=== PATIENT | female | born 2000 | race Caucasian/White ===

== ENCOUNTER 2020-04-17 00:58 | Emergency (ER) | payer OTHER ==
[2020-04-17] MEDS ORDERED: Nitrostat 0.4 MG (ED) SL ONE (01:25)
[2020-04-17] MEDS ORDERED: TYLENOL 325 MG PO ONE (01:28)
[2020-04-17] MEDS ORDERED: ZOFRAN ODT 4 MG PO ONE (01:29)
[2020-04-17] MEDS ORDERED: ZOFRAN ODT 4 MG ONE (01:33)
[2020-04-17] MEDS ORDERED: TYLENOL 325 MG ONE (01:33)
--- NOTE | 2020-04-17 01:35 | ERPHSYRPT ---
- History of Present Illness Time Seen by Provider: 04/17/20 01:17 Source: patient Exam Limitations: no limitations Physician History: Pt states she started with a global headache 7 days ago, was admitted to [facility] in [place] 3 days ago because of the headache, HTN and 30 second generalized seizure(pt's first) and discharged yesterday. Pt states she had a normal CT-head during her stay. Pt states her global headache returned 3 hours ago along with nausea and dull intermittent chest pain lasting up to 20 minutes. Pt denies shortness of air, fever, abdominal pain. LBM was 4 days ago & without blood. Allergies/Adverse Reactions: No Known Drug Allergies Allergy (Unverified 04/17/20 01:06) - Review of Systems Constitutional: No Fever Respiratory: No Dyspnea Cardiac: Chest Pain Abdominal/Gastrointestinal: Nausea, No Abdominal Pain, No Vomiting, No Diarrhea Neurological: Headache All Other Systems: Reviewed and Negative - Female History Hx Now: (unknown) - Nursing Vital Signs Nursing Vital Signs: Initial Vital Signs Temperature 97.9 F 04/17/20 01:08 Pulse Rate 53 L 04/17/20 01:08 Respiratory Rate 14 04/17/20 01:08 Blood Pressure 157/86 04/17/20 01:08 O2 Sat by Pulse Oximetry 97 04/17/20 01:08 Pain Scale Pain Intensity 6 - Physical Exam General Appearance: alert Eye Exam: PERRL/EOMI Ears, Nose, Throat Exam: other (cerumen occlusion of both ears.) Neck Exam: normal inspection Respiratory Exam: lungs clear Cardiovascular Exam: normal heart sounds Gastrointestinal/Abdominal Exam: soft, normal bowel sounds Back Exam: normal range of motion Extremity Exam: normal range of motion Mental Status Exam: alert, 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 Exam: normal hearing, normal speech, PERRL, tongue midline, No facial droop Motor/Sensory Exam: no motor deficit, no sensory deficit Skin Exam: warm, dry SpO2 Interpretation: normal SpO2: 97 O2 Delivery: Room Air - Course Nursing assessment & vital signs reviewed: Yes EKG Interpreted by Me: RATE (60), Sinus Rhythm, NORMAL AXIS, NORMAL INTERVALS Ordered Tests: Active Orders 24 hr Category Date Time Status EKG-ER Only STAT Care 04/17/20 01:25 Active CHEST 2 VIEWS (PA AND LAT) Stat Exams 04/17/20 01:26 Taken BLOOD CULTURE Stat Lab 04/17/20 03:00 Ordered CBC W DIFF Stat Lab 04/17/20 01:48 Completed CMP Stat Lab 04/17/20 01:48 Completed CULTURE,URINE Stat Lab 04/17/20 02:00 Received MAGNESIUM Stat Lab 04/17/20 01:48 Completed TROPONIN Q3H Lab 04/17/20 01:48 Completed TROPONIN Q3H Lab 04/17/20 04:30 Ordered TROPONIN Q3H Lab 04/17/20 07:30 Ordered TROPONIN Q3H Lab 04/17/20 10:30 Ordered TROPONIN Q3H Lab 04/17/20 13:30 Ordered UA W/RFX UR CULTURE Stat Lab 04/17/20 02:00 Completed Urine Triage Profile Stat Lab 04/17/20 02:00 Completed Medication Summary Discontinued Medications Generic Name Dose Route Start Last Admin Trade Name Freq PRN Reason Stop Dose Admin Acetaminophen 650 mg 04/17/20 01:28 04/17/20 01:34 Tylenol 325 Mg PO 04/17/20 01:29 650 mg STAT ONE Administration Acetaminophen Confirm 04/17/20 01:33 Tylenol 325 Mg Administered 04/17/20 01:34 Dose 650 mg .ROUTE .STK-MED ONE Ceftriaxone Sodium 1,000 mg 04/17/20 03:00 Rocephin 1000 Mg Inj IM 04/17/20 03:01 STAT ONE Ceftriaxone Sodium Confirm 04/17/20 03:03 Rocephin 1000 Mg Inj Administered 04/17/20 03:04 Dose 1,000 mg .ROUTE .STK-MED ONE Lidocaine HCl Confirm 04/17/20 03:04 Xylocaine 1% Hcl 20 Ml Mdv Administered 04/17/20 03:05 Dose 1 ml .ROUTE .STK-MED ONE Nitroglycerin 0.4 mg 04/17/20 01:25 04/17/20 01:34 Nitrostat 0.4 Mg (Ed) SL 04/17/20 01:26 0.4 mg STAT ONE Administration Ondansetron HCl 4 mg 04/17/20 01:29 04/17/20 01:34 Zofran Odt 4 Mg PO 04/17/20 01:30 4 mg STAT ONE Administration Ondansetron HCl Confirm 04/17/20 01:33 Zofran Odt 4 Mg Administered 04/17/20 01:34 Dose 4 mg .ROUTE .STK-MED ONE Promethazine HCl 25 mg 04/17/20 03:02 Phenergan 25 Mg Inj IM 04/17/20 03:03 STAT ONE Promethazine HCl Confirm 04/17/20 03:03 Phenergan 25 Mg Inj Administered 04/17/20 03:04 Dose 25 mg .ROUTE .STK-MED ONE Lab/Rad Data: Laboratory Result Diagrams 04/17/20 01:48 04/17/20 01:48 Laboratory Results 04/17/20 04/17/20 04/17/20 Range/Units 02:00 02:00 01:48 WBC (4.0-10.5) K/mm3 RBC (4.1-5.4) M/mm3 Hgb (12.0-16.0) gm/dl Hct (35-47) % MCV (78-100) fl MCH (26-32) pg MCHC (32-36) g/dl RDW (11.5-14.0) % Plt Count (150-450) K/mm3 MPV (7.5-11.0) fl Gran % (36.0-66.0) % Eos # (Auto) (0-0.5) Absolute Lymphs (auto) (1.0-4.6) Absolute Monos (auto) (0.0-1.3) Lymphocytes % (24.0-44.0) % Monocytes % (0.0-12.0) % Eosinophils % (0.00-5.0) % Basophils % (0.0-0.4) % Absolute Granulocytes (1.4-6.9) Basophils # (0-0.4) Sodium (137-145) mmol/L Potassium (3.5-5.1) mmol/L Chloride (98-107) mmol/L Carbon Dioxide (22-30) mmol/L Anion Gap (5-15) MEQ/L BUN (7-17) mg/dL Creatinine (0.52-1.04) mg/dL Estimated GFR ML/MIN Glucose (74-106) mg/dL Calcium (8.4-10.2) mg/dL Magnesium (1.6-2.3) mg/dL Total Bilirubin (0.2-1.3) mg/dL AST (14-36) U/L ALT (0-35) U/L Alkaline Phosphatase (38-126) U/L Troponin I < 0.012 (0.000-0.034) ng/mL Serum Total Protein (6.3-8.2) g/dL Albumin (3.5-5.0) g/dL Urine Color YELLOW (YELLOW) Urine Appearance SLIGHTLY CLOUDY (CLEAR) Urine pH 6.0 (5-6) Ur Specific [place] 1.015 (1.005-1.025) Urine Protein NEGATIVE (Negative) Urine Ketones NEGATIVE (NEGATIVE) Urine Blood LARGE (0-5) Lalit/ul Urine Nitrite NEGATIVE (NEGATIVE) Urine Bilirubin NEGATIVE (NEGATIVE) Urine Urobilinogen 4 (0-1) mg/dL Ur Leukocyte Esterase MODERATE (NEGATIVE) Urine WBC (Auto) 16-25 (0-5) /HPF Urine RBC (Auto) >101 (0-2) /HPF U Epithel Cells (Auto) NONE (FEW) /HPF Urine Bacteria (Auto) RARE (NEGATIVE) /HPF Amorphous Crystals FEW (NEGATIVE) /HPF Urine Mucus (Auto) SLIGHT (NEGATIVE) /HPF Urine Culture Reflexed YES (NO) Urine Glucose NEGATIVE (NEGATIVE) mg/dL Urine Opiates Level POSITIVE (NEGATIVE) Ur Methadone NEGATIVE (NEGATIVE) Urine Barbiturates NEGATIVE (NEGATIVE) Ur Phencyclidine (PCP) NEGATIVE (NEGATIVE) Urine Amphetamine NEGATIVE (NEGATIVE) U Benzodiazepine Level NEGATIVE (NEGATIVE) Urine Cocaine NEGATIVE (NEGATIVE) Urine Marijuana (THC) POSITIVE (NEGATIVE) 04/17/20 04/17/20 Range/Units 01:48 01:48 WBC 6.0 (4.0-10.5) K/mm3 RBC 4.14 (4.1-5.4) M/mm3 Hgb 11.6 L (12.0-16.0) gm/dl Hct 37.5 (35-47) % MCV 90.6 (78-100) fl MCH 28.0 (26-32) pg MCHC 30.9 L (32-36) g/dl RDW 14.0 (11.5-14.0) % Plt Count 242 (150-450) K/mm3 MPV 9.0 (7.5-11.0) fl Gran % 54.0 (36.0-66.0) % Eos # (Auto) 0.19 (0-0.5) Absolute Lymphs (auto) 2.12 (1.0-4.6) Absolute Monos (auto) 0.44 (0.0-1.3) Lymphocytes % 35.1 (24.0-44.0) % Monocytes % 7.3 (0.0-12.0) % Eosinophils % 3.1 (0.00-5.0) % Basophils % 0.5 (0.0-0.4) % Absolute Granulocytes 3.26 (1.4-6.9) Basophils # 0.03 (0-0.4) Sodium 139 (137-145) mmol/L Potassium 3.9 (3.5-5.1) mmol/L Chloride 107 (98-107) mmol/L Carbon Dioxide 27 (22-30) mmol/L Anion Gap 8.3 (5-15) MEQ/L BUN 12 (7-17) mg/dL Creatinine 0.66 (0.52-1.04) mg/dL Estimated GFR > 60.0 ML/MIN Glucose 92 (74-106) mg/dL Calcium 8.9 (8.4-10.2) mg/dL Magnesium 2.2 (1.6-2.3) mg/dL Total Bilirubin 0.30 (0.2-1.3) mg/dL AST 18 (14-36) U/L ALT 20 (0-35) U/L Alkaline Phosphatase 106 (38-126) U/L Troponin I (0.000-0.034) ng/mL Serum Total Protein 6.5 (6.3-8.2) g/dL Albumin 3.6 (3.5-5.0) g/dL Urine Color (YELLOW) Urine Appearance (CLEAR) Urine pH (5-6) Ur Specific [place] (1.005-1.025) Urine Protein (Negative) Urine Ketones (NEGATIVE) Urine Blood (0-5) Lalit/ul Urine Nitrite (NEGATIVE) Urine Bilirubin (NEGATIVE) Urine Urobilinogen (0-1) mg/dL Ur Leukocyte Esterase (NEGATIVE) Urine WBC (Auto) (0-5) /HPF Urine RBC (Auto) (0-2) /HPF U Epithel Cells (Auto) (FEW) /HPF Urine Bacteria (Auto) (NEGATIVE) /HPF Amorphous Crystals (NEGATIVE) /HPF Urine Mucus (Auto) (NEGATIVE) /HPF Urine Culture Reflexed (NO) Urine Glucose (NEGATIVE) mg/dL Urine Opiates Level (NEGATIVE) Ur Methadone (NEGATIVE) Urine Barbiturates (NEGATIVE) Ur Phencyclidine (PCP) (NEGATIVE) Urine Amphetamine (NEGATIVE) U Benzodiazepine Level (NEGATIVE) Urine Cocaine (NEGATIVE) Urine Marijuana (THC) (NEGATIVE) - Progress Progress: improved Progress Note: 04/17/20 02:57 CT-head from 04/14/20 impression: no acute findings. Within normal limits. Counseled pt/family regarding: lab results, diagnosis - Departure Departure Disposition: Home Clinical Impression: Headache, HTN (hypertension), UTI (urinary tract infection), Chest pain Condition: Stable Critical Care Time: No Referrals: DOCTOR,NO FAMILY [Primary Care Provider] - Instructions: Headache, Adult (DC), Urinary Tract Infection, Adult (DC) Additional Instructions: Follow up with private doctor tomorrow. Prescriptions: Ondansetron ODT 4 MG [Zofran Odt 4 mg] 4 mg PO Q6H PRN PRN #10 tab.rapdis PRN Reason: Nausea/Vomiting Nitrofurantoin Monohyd/M-Cryst [Macrobid 100 mg Capsule] 100 mg PO BID #20 capsule
[2020-04-17 01:52] LABS: Absolute Neutrophil Ct (ANC) 3.26 (1.4-6.9); BASOPHIL % 0.5 % (0.0-0.4); Basophil (Absolute #) 0.03 (0-0.4); Eosinophil % 3.1 % (0.00-5.0); Eosinophil (Absolute #) 0.19 (0-0.5); Hematocrit 37.5 % (35-47); Hemoglobin 11.6 gm/dl (12.0-16.0); Lymphocyte (Absolute #) 2.12 (1.0-4.6); Lymphocytes % 35.1 % (24.0-44.0); Mean Cell Volume 90.6 fl (78-100); Mean Corpuscular Hgb Concent. 30.9 g/dl (32-36); Monocyte (Absolute #) 0.44 (0.0-1.3); Monocytes % 7.3 % (0.0-12.0); Platelet Count 242 K/mm3 (150-450); Red Blood Count 4.14 M/mm3 (4.1-5.4)
[2020-04-17 02:06] LABS: ALBUMIN 3.6 g/dL (3.5-5.0); ALKALINE PHOSPHATASE 106 U/L (38-126); ANION GAP 8.3 MEQ/L (5-15); BLOOD UREA NITROGEN 12 mg/dL (7-17); CHLORIDE 107 mmol/L (98-107); Calcium 8.9 mg/dL (8.4-10.2); Carbon Dioxide 27 mmol/L (22-30); Creatinine 1 0.66 mg/dL (0.52-1.04); EST GLOMERULAR FILTRATION RATE > 60.0 ML/MIN; Glucose 92 mg/dL (74-106); MAGNESIUM 2.2 mg/dL (1.6-2.3); Potassium 3.9 mmol/L (3.5-5.1); SGOT/AST 18 U/L (14-36); SGPT/ALT 20 U/L (0-35); SODIUM 139 mmol/L (137-145); Total Protein 6.5 g/dL (6.3-8.2)
[2020-04-17 02:12] LABS: Amourphous Crystal FEW /HPF (NEGATIVE); Appearance SLIGHTLY CLOUDY (CLEAR); Bacteria RARE /HPF (NEGATIVE); Bilirubin NEGATIVE (NEGATIVE); Blood LARGE Ery/ul (0-5); Glucose NEGATIVE (NEGATIVE); Ketones NEGATIVE (NEGATIVE); Leukocyte Esterase MODERATE (NEGATIVE); Mucus SLIGHT /HPF (NEGATIVE); Nitrite NEGATIVE (NEGATIVE); Protein,Urine Dip NEGATIVE (Negative); RBC >101 /HPF (0-2); Specific Gravity 1.015 (1.005-1.025); Urobilinogen 4 mg/dL (0-1)
[2020-04-17 02:19] LABS: Amphetamine,Urine NEGATIVE (NEGATIVE); Barbiturate,Urine NEGATIVE (NEGATIVE); Benzodiazepine,Urine NEGATIVE (NEGATIVE); Cocaine,Urine NEGATIVE (NEGATIVE); Methadone,Urine NEGATIVE (NEGATIVE); Opiate,Urine POSITIVE (NEGATIVE); PCP,Urine NEGATIVE (NEGATIVE); THC,Urine POSITIVE (NEGATIVE)
[2020-04-17] MEDS ORDERED: Rocephin 1000 MG INJ IM ONE (03:00)
[2020-04-17] MEDS ORDERED: Phenergan 25 MG INJ IM ONE (03:02)
[2020-04-17] MEDS ORDERED: Rocephin 1000 MG INJ ONE (03:03)
[2020-04-17] MEDS ORDERED: Phenergan 25 MG INJ ONE (03:03)
[2020-04-17] MEDS ORDERED: XYLOCAINE 1% HCL 20 ML MDV ONE (03:04)
[2020-04-17] MEDS ORDERED: TORAdol 30 mg Injection ONE (03:05)
[2020-04-17] MEDS ORDERED: TORAdol 30 mg Injection IM ONE (03:06)
[2020-04-17 03:16] VITALS: O2SAT 97
[2020-04-17 03:37] VITALS: BP 178/93; PULSE 50
--- NOTE | 2020-04-17 09:20 | XRAY ---
Indication: Pain. Comparison: None PA/lateral chest demonstrates normal heart or lungs. Bony thorax intact.
== END 2020-04-17 03:37 | disposition home or self-care (01) ==
LOC: ED 00:58
DX: R51.9 Headache, unspecified (principal); I10 Essential (primary) hypertension; R07.9 Chest pain, unspecified
CPT/HCPCS: 36415; 71046; 80053; 80307; 81001; 83735; 84484; 85025; 87040; 87086; 93005; 96372; 99284; J0696; J1885; J2550; Q0162; A9270-GY

== ENCOUNTER 2022-04-21 18:04 | Emergency (ER) | payer OTHER ==
--- NOTE | 2022-04-21 18:56 | ERPHSYRPT ---
- History of Present Illness Time Seen by Provider: 04/21/22 18:51 Historian: patient Exam Limitations: no limitations Patient Subjective Stated Complaint: Patient states that she is having chest pain radiating in her shoulders and her arms are numb. States she is having t rouble breathing. She said it started 04/03 and started having the pain with it 04/20. Triage Nursing Assessment: Patient to ED with chest pain. Patient is tearful and anxious at this time. VS WNL. Patient is rating pain at a 5. States it feels like a constant cramping. 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 No neuro deficits, just radicular pain. reflexes normal and strength normal and symmetrical. Heart score is less than 3 - no family Hx, No hptn other that eclampsia resolved- . EKG appears normal and cp only mildly suspicious. Percs out with no Hx DVT or PE, No hormonal therapy. No recent surgeis and no hx cancer. . Timing/Duration: today, intermittent Activities at Onset: activity Quality: sharpness Location: central, shoulder Chest Pain Radiation: arm Severity of Pain-Max: mild Severity of Pain-Current: mild Modifying Factors: Improves With: movement Associated Symptoms: denies symptoms Prior Chest Pain/Cardiac Workup: non-cardiac, recently seen/treated Nitro Today/Relief: no nitro taken today Aspirin Treatment Today: 81 mg x 4, provided by ED Allergies/Adverse Reactions: No Known Drug Allergies Allergy (Verified 04/21/22 18:33) Hx Tetanus, Diphtheria Vaccination/Date Given: Yes Hx Influenza Vaccination/Date Given: No Hx Pneumococcal Vaccination/Date Given: No Immunizations Up to Date: Yes Travel Risk - International Travel Have you traveled outside of the country in past 3 weeks: No - Coronavirus Screening Are you exhibiting any of the following symptoms?: No Close contact with a COVID-19 positive Pt in past 14-21 Days: No - Vaccine Status Have you recieved a Covid-19 vaccination: No - Review of Systems Constitutional: No Fever, No Chills Eyes: No Symptoms Ears, Nose, & Throat: No Symptoms Respiratory: No Cough, No Dyspnea Cardiac: Chest Pain, No Edema, No Syncope Abdominal/Gastrointestinal: No Abdominal Pain, No Nausea, No Vomiting, No Diarrhea Genitourinary Symptoms: No Dysuria Musculoskeletal: No Back Pain, No Neck Pain Skin: No Rash Neurological: No Dizziness, No Focal Weakness, No Sensory Changes Psychological: No Symptoms Endocrine: No Symptoms All Other Systems: Reviewed and Negative - Past Medical History Pertinent Past Medical History: No - Past Surgical History Past Surgical History: No Other Surgical History: wisdom teeth - Social History Smoking Status: Current every day smoker Exposure to second hand smoke: Yes Drug Use: marijuana Patient Lives Alone: No - Female History Hx Last Menstrual Period: 03/29/22 Hx Now: No - Nursing Vital Signs Nursing Vital Signs: Initial Vital Signs Temperature 99 F 04/21/22 18:19 Pulse Rate 81 04/21/22 18:19 Respiratory Rate 21 04/21/22 18:19 Blood Pressure 111/75 04/21/22 18:19 O2 Sat by Pulse Oximetry 99 04/21/22 18:19 Pain Scale Pain Intensity 5 - Physical Exam General Appearance: no apparent distress, alert Eye Exam: PERRL/EOMI, eyes nml inspection Ears, Nose, Throat Exam: normal ENT inspection, moist mucous membranes Neck Exam: normal inspection, non-tender, supple, full range of motion Respiratory Exam: normal breath sounds, lungs clear, No respiratory distress Cardiovascular Exam: regular rate/rhythm, other (mid systolic click) Gastrointestinal/Abdomen Exam: soft, No tenderness, No mass Pelvic Exam: deferred Rectal Exam: deferred Back Exam: normal inspection, No CVA tenderness, No vertebral tenderness Extremity Exam: normal inspection, normal range of motion Neurologic Exam: alert, oriented x 3, cooperative, normal mood/affect, sensation nml, No motor deficits Skin Exam: normal color, warm, dry SpO2 Interpretation: normal SpO2: 99 O2 Delivery: Room Air - Course Nursing assessment & vital signs reviewed: Yes EKG Interpreted by Me: Sinus Rhythm, NORMAL AXIS, NORMAL INTERVALS, NORMAL QRS, Non-specific ST Changes Ordered Tests: Active Orders 24 hr Category Date Time Status EKG-ER Only STAT Care 04/21/22 19:02 Active HCG QUALITATIVE,SERUM Stat Lab 04/21/22 19:07 Completed TROPONIN Q4H Lab 04/21/22 19:07 Completed TROPONIN Q4H Lab 04/21/22 23:15 Ordered TROPONIN Q4H Lab 04/22/22 03:15 Ordered Lab/Rad Data: Laboratory Results 04/21/22 04/21/22 Range/Units 19:07 19:07 Troponin I < 0.012 (0.000-0.034) ng/mL Serum , Qual NEGATIVE (Negative) - Progress Progress: improved, re-examined Air Movement: good Progress Note: 04/21/22 20:53 no CP except with arm motions . 04/21/22 20:53 discussed risks with pt and that although she is low risk, additional cardiac pathology could still be evolving and she is comfortable with DC and outpt followup without further workup in [facility] and has the capacity to make this choice. Blood Culture(s) Obtained: No Antibiotics given: No Counseled pt/family regarding: lab results, diagnosis, need for follow-up - Departure Departure Disposition: Home Clinical Impression: Chest pain, Mid-systolic click Condition: Good Critical Care Time: No Referrals: DOCTOR,NO FAMILY [Primary Care Provider] - Follow up/PCP as directed Instructions: Mitral Valve Prolapse, Degenerative Disc Disease, Chest Pain (DC) Additional Instructions: although your heart score is low risk , there could still be cardiac concerns especially with your mid systolic click which can be mitral valve prolapse best seen by echocardiogram . return meantime if further symptoms or concerns, and also see your dr to consider MRI for cervical disc disease.
[2022-04-21 20:31] VITALS: BP 121/73; PULSE 84
[2022-04-21 20:55] VITALS: O2SAT 99
== END 2022-04-21 21:08 | disposition home or self-care (01) ==
LOC: ED 18:04
DX: R07.9 Chest pain, unspecified (principal); R01.2 Other cardiac sounds; Z72.0 Tobacco use; Z28.310 Unvaccinated for COVID-19
CPT/HCPCS: 36415; 84484; 84703; 93005; 99283

== ENCOUNTER 2022-11-03 13:03 | Emergency (ER) | payer OTHER ==
[2022-11-03 13:49] LABS: Absolute Neutrophil Ct (ANC) 3.12 x10^3/uL (1.4-6.9); BASOPHIL % 0.2 % (0.0-0.4); Basophil (Absolute #) 0.01 x10^3/uL (0-0.4); Eosinophil % 0.4 % (0.00-5.0); Eosinophil (Absolute #) 0.02 x10^3/uL (0-0.5); Hematocrit 42.1 % (35-47); IMMATURE GRAN # 0.01 x10^3u/L (0.00-0.03); IMMATURE GRAN % 0.2 % (0.00-0.4); Lymphocyte (Absolute #) 1.36 x10^3/uL (1.0-4.6); Lymphocytes % 29.1 % (24.0-44.0); Mean Cell Volume 92.5 fL (78-100); Mean Corpuscular Hemoglobin 30.8 pg (26-32); Mean Corpuscular Hgb Concent. 33.3 g/dL (32-36); Mean Platelet Volume 10.3 fL (7.5-11.0); Monocyte (Absolute #) 0.15 x10^3/uL (0.0-1.3); Monocytes % 3.2 % (0.0-12.0); Neutrophil % 66.9 % (36.0-66.0); Platelet Count 194 x10^3/uL (150-450); Red Blood Count 4.55 x10^6/uL (4.1-5.4); Red Cell Distribution Width 12.3 % (11.5-14.0); White Blood Count 4.7 x10^3/uL (4.0-10.5)
[2022-11-03 14:05] LABS: ADD URINE CULTURE? YES (NO); Appearance Clear (Clear); Bacteria None Seen /HPF (None Seen); Bilirubin Negative (Negative); Blood Large (Negative); Epithelial Cells Few /HPF (None Seen); Glucose, Urine Negative (Negative); Hyaline Casts NONE SEEN /LPF (0-2); Ketones Negative (Negative); Leukocyte Esterase Small (Negative); Nitrite Negative (Negative); Ph 7.5 (4.6-8.0); Protein,Urine Dip Negative (Negative); Specific Gravity 1.015 (1.005-1.030)
[2022-11-03 14:18] LABS: ALBUMIN 4.5 g/dL (3.5-5.0); ALKALINE PHOSPHATASE 54 U/L (38-126); ANION GAP 13.9 MEQ/L (5-15); BLOOD UREA NITROGEN 6 mg/dL (7-17); CHLORIDE 103 mmol/L (98-107); Calcium 9.2 mg/dL (8.4-10.2); Carbon Dioxide 26 mmol/L (22-30); Creatinine 1 0.43 mg/dL (0.52-1.04); EST GLOMERULAR FILTRATION RATE > 60.0 ML/MIN; Glucose 79 mg/dL (74-106); Potassium 3.4 mmol/L (3.5-5.1); SGOT/AST 23 U/L (14-36); SGPT/ALT 17 U/L (0-35); SODIUM 139 mmol/L (137-145); Total Protein 8.2 g/dL (6.3-8.2)
--- NOTE | 2022-11-03 14:38 | ERPHSYRPT ---
- History of Present Illness Time Seen by Provider: 11/03/22 13:21 Source: patient Exam Limitations: no limitations Patient Subjective Stated Complaint: -14 weeks vaginal bleeding Triage Nursing Assessment: Patient ambulated back to ED and transferred self to bed. Patient A+O X 3. Patient's skin pink, warm and dry. Patient states she is 14 weeks and started having lower back pain 5/10. Patient states she started having vaginal bleeding today bright red blood. Physician History: Patient is here with some vaginal bleeding. Patient states that she is 14 weeks . She follows with MFM at [facility] in [place]. Patient is high risk MFM secondary to preeclampsia in her first . Patient states that she is approximately 14 weeks . No falls or trauma. Patient states that she has no fever, chills. No UTI-like symptoms. States that she had right vaginal spotting. Started today. Nothing has made it better or worse. Bleeding has resolved. Allergies/Adverse Reactions: No Known Drug Allergies Allergy (Verified 11/03/22 13:12) Home Medications: No Reportable Medications [No Reported Medications] 11/03/22 [History] Hx Tetanus, Diphtheria Vaccination/Date Given: Yes Hx Influenza Vaccination/Date Given: No Hx Pneumococcal Vaccination/Date Given: No Immunizations Up to Date: Yes Travel Risk - International Travel Have you traveled outside of the country in past 3 weeks: No - Coronavirus Screening Are you exhibiting any of the following symptoms?: No Close contact with a COVID-19 positive Pt in past 14-21 Days: No - Vaccine Status Have you recieved a Covid-19 vaccination: No - Review of Systems Constitutional: No Fever, No Chills Eyes: No Symptoms Ears, Nose, & Throat: No Symptoms Respiratory: No Cough, No Dyspnea Cardiac: No Chest Pain, No Edema, No Syncope Abdominal/Gastrointestinal: No Abdominal Pain, No Nausea, No Vomiting, No Diarrhea Genitourinary Symptoms: Vaginal Bleeding, No Dysuria Musculoskeletal: No Back Pain, No Neck Pain Skin: No Rash Neurological: No Dizziness, No Focal Weakness, No Sensory Changes Psychological: No Symptoms Endocrine: No Symptoms All Other Systems: Reviewed and Negative - Past Medical History Pertinent Past Medical History: No Other Medical History: preclampsia with first child - Past Surgical History Past Surgical History: No Other Surgical History: wisdom teeth - Social History Smoking Status: Former smoker Exposure to second hand smoke: Yes Drug Use: none Patient Lives Alone: No - Female History Hx Last Menstrual Period: 08/04/2022 Hx Now: Yes Gestational Age: 14 weeks - Nursing Vital Signs Nursing Vital Signs: Initial Vital Signs Temperature 97.3 F 11/03/22 13:14 Pulse Rate 94 H 11/03/22 13:14 Respiratory Rate 18 11/03/22 13:14 Blood Pressure 114/52 11/03/22 13:14 O2 Sat by Pulse Oximetry 99 11/03/22 13:14 Pain Scale Pain Intensity 5 - Physical Exam General Appearance: no apparent distress, alert Eye Exam: PERRL/EOMI, eyes nml inspection Ears, Nose, Throat Exam: normal ENT inspection, TMs normal, pharynx normal, moist mucous membranes Neck Exam: normal inspection, non-tender, supple, full range of motion Respiratory Exam: normal breath sounds, lungs clear, No respiratory distress Cardiovascular Exam: regular rate/rhythm, normal heart sounds, normal peripheral pulses Gastrointestinal/Abdomen Exam: soft, normal bowel sounds, No tenderness, No mass Back Exam: normal inspection, normal range of motion, No CVA tenderness, No vertebral tenderness Extremity Exam: normal inspection, normal range of motion, pelvis stable Neurologic Exam: alert, oriented x 3, cooperative, normal mood/affect, nml cerebellar function, nml station & gait, sensation nml, No motor deficits Skin Exam: normal color, warm, dry, No rash Lymphatic Exam: No adenopathy SpO2: 99 - Course Nursing assessment & vital signs reviewed: Yes Ordered Tests: Active Orders 24 hr Category Date Time Status IV Insertion STAT Care 11/03/22 13:26 Completed OB LIMITED [US] Stat Exams 11/03/22 13:58 Taken CBC W DIFF Stat Lab 11/03/22 13:45 Completed CMP Stat Lab 11/03/22 13:27 Completed CULTURE,URINE Stat Lab 11/03/22 13:27 Received HCG, Quantitative (Inhouse) Stat Lab 11/03/22 13:27 Completed UA W/RFX UR CULTURE Stat Lab 11/03/22 13:27 Completed Lab/Rad Data: Laboratory Result Diagrams 11/03/22 13:45 11/03/22 13:27 Laboratory Results 11/03/22 11/03/22 11/03/22 Range/Units 13:45 13:27 13:27 WBC 4.7 (4.0-10.5) x10^3/uL RBC 4.55 (4.1-5.4) x10^6/uL Hgb 14.0 (12.0-16.0) g/dL Hct 42.1 (35-47) % MCV 92.5 (78-100) fL MCH 30.8 (26-32) pg MCHC 33.3 (32-36) g/dL RDW 12.3 (11.5-14.0) % Plt Count 194 (150-450) x10^3/uL MPV 10.3 (7.5-11.0) fL Gran % 66.9 H (36.0-66.0) % Immature Gran % (Auto) 0.2 (0.00-0.4) % Nucleat RBC Rel Count 0.0 (0.00-0.1) % Eos # (Auto) 0.02 (0-0.5) x10^3/uL Immature Gran # (Auto) 0.01 (0.00-0.03) x10^3u/L Absolute Lymphs (auto) 1.36 (1.0-4.6) x10^3/uL Absolute Monos (auto) 0.15 (0.0-1.3) x10^3/uL Absolute Nucleated RBC 0.00 (0.00-0.01) x10^3u/L Lymphocytes % 29.1 (24.0-44.0) % Monocytes % 3.2 (0.0-12.0) % Eosinophils % 0.4 (0.00-5.0) % Basophils % 0.2 (0.0-0.4) % Absolute Granulocytes 3.12 (1.4-6.9) x10^3/uL Basophils # 0.01 (0-0.4) x10^3/uL Sodium 139 (137-145) mmol/L Potassium 3.4 L (3.5-5.1) mmol/L Chloride 103 (98-107) mmol/L Carbon Dioxide 26 (22-30) mmol/L Anion Gap 13.9 (5-15) MEQ/L BUN 6 L (7-17) mg/dL Creatinine 0.43 L (0.52-1.04) mg/dL Estimated GFR > 60.0 ML/MIN Glucose 79 (74-106) mg/dL Calcium 9.2 (8.4-10.2) mg/dL Total Bilirubin 0.40 (0.2-1.3) mg/dL AST 23 (14-36) U/L ALT 17 (0-35) U/L Alkaline Phosphatase 54 (38-126) U/L Serum Total Protein 8.2 (6.3-8.2) g/dL Albumin 4.5 (3.5-5.0) g/dL Beta HCG, Quant 21962 mIU/ml Urine Color Yellow (Yellow) Urine Appearance Clear (Clear) Urine pH 7.5 (4.6-8.0) Ur Specific [place] 1.015 (1.005-1.030) Urine Protein Negative (Negative) Urine Glucose (UA) Negative (Negative) mg/dL Urine Ketones Negative (Negative) Urine Blood Large A (Negative) Urine Nitrite Negative (Negative) Urine Bilirubin Negative (Negative) Urine Urobilinogen 1.0 A (0.2) mg/dL Ur Leukocyte Esterase Small A (Negative) U Hyaline Cast (Auto) NONE SEEN (0-2) /LPF Urine Microscopic RBC 11-20 A (0-5) /HPF Urine Microscopic WBC 11-20 A (0-5) /HPF Ur Epithelial Cells Few (None Seen) /HPF Urine Bacteria None Seen (None Seen) /HPF Urine Culture Reflexed YES (NO) - Progress Progress: improved Progress Note: 11/03/22 15:41 Patient here with vaginal bleeding in . Patient has a stable H&H. UA shows no signs of infection. We were able to obtain an ultrasound today. Angela ring report given to me by electrical design technician. Patient has a stable heart rate of 165. Baby appears stable. Possible small subchorionic hematoma. Otherwise stable. I did discuss that this is a one-time reading patient may go on to still have a miscarriage. Threatened miscarriage at this point time. Plan for discharge home. Return here sooner for new or changing symptoms Counseled pt/family regarding: lab results, diagnosis, need for follow-up, rad results Medical Desision Making - Diagnostic Testing Diagnostic test were ordered, analyzed, and reviewed by me: Yes Radiological Interpretation: Reviewed by me - Risk of complications Minimal Risk: Minimal risk of morbidity - Departure Departure Disposition: Home Clinical Impression: Vaginal bleeding during , Subchorionic hematoma in first trimester Condition: Stable Critical Care Time: No Referrals: DOCTOR,NO FAMILY [Primary Care Provider] - Follow up/PCP as directed Instructions: Threatened Miscarriage (DC) Additional Instructions: Call your PLASTIC SHEETS FINISHING SUPERVISOR tomorrow for close follow-up and reexam.
[2022-11-03 14:42] LABS: HCG, Quantitative (Inhouse) 23113 mIU/ml
[2022-11-03 14:52] VITALS: BP 98/54; PULSE 79
[2022-11-03 15:41] VITALS: O2SAT 99
--- NOTE | 2022-11-03 19:57 | XRAY ---
Indication: Vaginal bleeding. 14 weeks . Two-dimensional transabdominal limited OB ultrasound demonstrates a single intrauterine with heart rate 165 BPM. Mean crown-rump length measures 6.81 cm corresponding to 13 weeks 1 day. Predominantly anterior placenta. 1.2 x 0.7 x 1.3 cm subchorionic hemorrhage anteriorly inferiorly. Impression: Single viable intrauterine measuring 13 weeks 1 day. Expected date confinement is May 10, 2023. Tiny subchorionic hemorrhage. Comment: Preliminary report was given.
== END 2022-11-03 14:52 | disposition home or self-care (01) ==
LOC: ED 13:03
DX: O20.9 Hemorrhage in early pregnancy, unspecified (principal); Z3A.14 14 weeks gestation of pregnancy; O43.892 Other placental disorders, second trimester; O09.292 Supervision of pregnancy with other poor reproductive or obstetric history, second trimester; Z28.310 Unvaccinated for COVID-19
CPT/HCPCS: 36000; 36415; 76815; 80053; 81001; 84702; 85025; 87086; 99283